=== PATIENT | male | born 1950 | race Caucasian/White ===

== ENCOUNTER 2023-05-11 08:35 | Inpatient (IN) | payer MEDICARE, MEDICAID ==
[~2023-05-11] VITALS: Ht 167.6 cm; Wt 71.4 kg
[~2023-05-11 08:35] MED LIST: CLIN-97 PO; NAPR-56 PO
--- NOTE | 2023-05-11 09:05 | NUR ---
PATIENTS , LOOKING FOR XL WHEELCHAIR, ER REG WAS ABLE TO LOCATE AN LARGER W/C BUT PATIENT AND DECLINED PER "ITS TOO LOW" UNDERSTANDING IN THE SITUATION.
[2023-05-11] MEDS ORDERED: piperacillin/tazo 4.5gm/100ml 100 ML IV SCH (12:00)
[2023-05-11] MEDS ORDERED: ringers solution, lacted 1,000 ML IV ONE (12:05)
[2023-05-11 12:33] LABS: BASOPHILS # (AUTO) 0.1 X10'3 (0-0.2); BASOPHILS % (AUTO) 0.6 % (0-1); EOSINOPHILS % (AUTO) 0.4 % (0-6); HEMATOCRIT 44.4 % (42.0-52.0); LYMPHOCYTES # (AUTO) 0.8 X10'3 (1.1-4.8); LYMPHOCYTES % (AUTO) 8.9 % (21-51); MEAN CORPUSCULAR HEMOGLOBIN 29.8 PG (27.0-31.0); MEAN CORPUSCULAR HGB CONC 33.8 g/dL (33.0-36.5); MEAN CORPUSCULAR VOLUME 88.1 FL (78-98); MEAN PLATELET VOLUME 6.5 FL (7.4-10.4); MONOCYTES # (AUTO) 0.8 X10'3 (0-0.9); MONOCYTES % (AUTO) 7.9 % (2-12); NEUTROPHILS # (AUTO) 7.8 X10'3 (1.8-7.7); NEUTROPHILS % (AUTO) 82.2 % (42-75); PLATELET COUNT 328 X10'3 (140-440); RED BLOOD COUNT 5.04 X10'6 (4.70-6.10); RED CELL DISTRIBUTION WIDTH 13.6 % (11.5-14.5); WHITE BLOOD COUNT 9.5 X10'3 (4.5-11.0)
[2023-05-11] MEDS ORDERED: normal saline 1000ml 1,000 ML IV ONE (12:40)
[2023-05-11 13:00] LABS: ALANINE AMINOTRANSFERASE 22 U/L (12-78); ALBUMIN 4.1 G/DL (3.4-5.0); ALBUMIN/GLOBULIN RATIO 1.1 (1.1-1.5); ALKALINE PHOSPHATASE 124 IU/L (46-116); ANION GAP 11 (8-16); ASPARTATE AMINO TRANSFERASE 23 U/L (10-37); BILIRUBIN,TOTAL 0.6 MG/DL (0.1-1.0); BLOOD UREA NITROGEN 12 MG/DL (7-18); BUN/CREATININE RATIO 16.2 (10.0-20.0); CALCIUM 9.8 MG/DL (8.5-10.1); CHLORIDE 101 MMOL/L (99-107); CREATININE 0.74 MG/DL (0.60-1.10); GLUCOSE 107 MG/DL (70-104); SODIUM 134 MMOL/L (135-145); TOTAL CARBON DIOXIDE 21.7 MMOL/L (24-32); eCRCL 81 ML/MIN; eGFR > 90 ML/MIN
[2023-05-11] MEDS: vancomycin/NS 1 GM ADD-VANTAGE 250 ML IV SCH (14:00)
--- NOTE | 2023-05-11 14:09 | NUR ---
VASC DOWN HERE FOR STUDY, PT IN CT AND STUDY IS ROUTINE, THEY WILL RETURN.
[2023-05-11] MEDS ORDERED: magnesium 4gm in 100ml NS 100 ML IV PRN (14:25)
[2023-05-11] MEDS ORDERED: magnesium 2GM in 50ml NS 50 ML IV PRN (14:25)
[2023-05-11] MEDS ORDERED: acetaminophen 325mg tablet PO PRN (14:25)
[2023-05-11] MEDS ORDERED: mag hydrox/Alum hydrox/simeth 30ml oral suspension PO PRN (14:25)
[2023-05-11] MEDS ORDERED: magnesium hydroxide 30ml (MOM) UD suspension PO PRN (14:25)
[2023-05-11] MEDS ORDERED: ondansetron/PF 4mg/2ml inj IV PRN (14:25)
[2023-05-11] MEDS ORDERED: diphenhydrAMINE 25mg capsule PO PRN (14:25)
[2023-05-11] MEDS ORDERED: potassium Cl 40MEQ/1/2NS 520ml 520 ML IV PRN (14:25)
[2023-05-11] MEDS ORDERED: potassium Cl 20 mEq SR tablet PO PRN ×2 (14:25)
[2023-05-11] MEDS ORDERED: magnesium Cl slow-release 64mg tablet PO PRN (14:25)
[2023-05-11] MEDS ORDERED: CLIN300C71 PO (14:44)
[2023-05-11] MEDS ORDERED: ibuprofen 200mg tablet PO ONE (16:05)
[2023-05-11] MEDS: K and/or MAG REPLACEMENT MC SCH (19:41)
[2023-05-11] MEDS: docusate sod 100mg capsule PO SCH (19:41)
--- NOTE | 2023-05-11 21:30 | NUR ---
REPORT CALLED TO FLOOR RN PT TX TO ROOM 4016 BY TECH
--- NOTE | 2023-05-11 21:35 | NUR ---
Patient in room ORTHO 4010. I have received report from KELSIE Ricci in the ER and had the opportunity to ask questions and assume patient care.
[2023-05-11 22:00] VITALS: BP 151/75; PULSE 72; RESP 16; TEMP 98.1; O2SAT 96
--- NOTE | 2023-05-11 22:00 | NUR ---
Patient arrived from ER in a wheelchair, has limited use of legs and he is a 2person assist into bed.
[2023-05-11 22:30] VITALS: RESP 16; O2SAT 96
[2023-05-11] MEDS: piperacillin/tazo 4.5gm/100ml 100 ML IV SCH (22:53)
[2023-05-11] MEDS: heparin, porcine 5000 units/ml vial SQ SCH (22:56)
[2023-05-12] MEDS: HYDROcodone/acetaminophen 5mg/325mg tablet PO PRN ×3 (02:45→22:06)
[2023-05-12] MEDS: vancomycin/NS 1 GM ADD-VANTAGE 250 ML IV SCH ×2 (03:21→15:01)
[2023-05-12] MEDS: piperacillin/tazo 4.5gm/100ml 100 ML IV SCH ×3 (05:06→22:07)
[2023-05-12 06:00] VITALS: BP 125/76; PULSE 67; RESP 16; TEMP 97.6; O2SAT 94
[2023-05-12 06:28] LABS: BASOPHILS % (AUTO) 0.6 % (0-1); EOSINOPHILS # (AUTO) 0.2 X10'3 (0-0.9); EOSINOPHILS % (AUTO) 3.9 % (0-6); HEMATOCRIT 38.7 % (42.0-52.0); HEMOGLOBIN 13.1 g/dl (14.0-17.9); LYMPHOCYTES % (AUTO) 16.6 % (21-51); MEAN CORPUSCULAR HGB CONC 33.9 g/dL (33.0-36.5); MEAN CORPUSCULAR VOLUME 88.4 FL (78-98); MEAN PLATELET VOLUME 6.4 FL (7.4-10.4); MONOCYTES # (AUTO) 0.7 X10'3 (0-0.9); MONOCYTES % (AUTO) 11.4 % (2-12); NEUTROPHILS # (AUTO) 4.2 X10'3 (1.8-7.7); NEUTROPHILS % (AUTO) 67.5 % (42-75); PLATELET COUNT 264 X10'3 (140-440); RED BLOOD COUNT 4.38 X10'6 (4.70-6.10); RED CELL DISTRIBUTION WIDTH 13.6 % (11.5-14.5); WHITE BLOOD COUNT 6.2 X10'3 (4.5-11.0)
--- NOTE | 2023-05-12 06:43 | NUR ---
Problems reprioritized. Patient report given, questions answered & plan of care reviewed with TARIQ Gibbons.
[2023-05-12 06:53] LABS: ALANINE AMINOTRANSFERASE 19 U/L (12-78); ALBUMIN/GLOBULIN RATIO 0.9 (1.1-1.5); ALKALINE PHOSPHATASE 94 IU/L (46-116); ANION GAP 10 (8-16); ASPARTATE AMINO TRANSFERASE 24 U/L (10-37); BILIRUBIN,TOTAL 0.7 MG/DL (0.1-1.0); BLOOD UREA NITROGEN 11 MG/DL (7-18); BUN/CREATININE RATIO 14.3 (10.0-20.0); CALCIUM 8.6 MG/DL (8.5-10.1); CHLORIDE 104 MMOL/L (99-107); CREATININE 0.77 MG/DL (0.60-1.10); GLUCOSE 87 MG/DL (70-104); MAGNESIUM 1.9 MG/DL (1.5-2.4); PHOSPHORUS 2.8 MG/DL (2.3-4.5); POTASSIUM 3.8 MMOL/L (3.5-5.1); SODIUM 138 MMOL/L (135-145); TOTAL CARBON DIOXIDE 24.2 MMOL/L (24-32); TOTAL PROTEIN 6.3 G/DL (6.4-8.2); eCRCL 78 ML/MIN; eGFR > 90 ML/MIN
[2023-05-12] MEDS: K and/or MAG REPLACEMENT MC SCH ×2 (08:00→20:00)
[2023-05-12] MEDS: docusate sod 100mg capsule PO SCH ×2 (08:00→20:00)
[2023-05-12 08:45] VITALS: RESP 20
[2023-05-12] MEDS: heparin, porcine 5000 units/ml vial SQ SCH ×2 (09:36→20:34)
[2023-05-12 10:00] VITALS: BP 134/84; PULSE 74; RESP 18; TEMP 98.2; O2SAT 96
--- NOTE | 2023-05-12 14:37 | NUR ---
PRESSURE ULCER EDUCATION: DEFINITION: A pressure ulcer is an area of skin that breaks down when you stay in one position too long. The constant pressure against the skin reduces the blood flow to that area and the affected tissue dies. CAUSES: "Being bedridden or in a wheelchair "Fragile skin "Having a chronic condition, such as diabetes or vascular disease "Inability to move certain parts of your body without assistance "Older age "Incontinence of urine or stool SYMPTOMS: "A reddened area that DOES NOT turn white when pressed on - this can be the beginning of a pressure ulcer "A blister, deep sore or a crater - these can be advanced pressure ulcers FIRST AID: "Relieve the pressure on this area "Keep the area clean and dry "Call your primary doctor if you see any of the above symptoms "DO NOT massage the area "DO NOT use a donut shaped or ring shaped pillow- these actually interfere with the blood flow and cause complications PREVENTION: "Check for pressure ulcers everyday "Change position at least every two hours to relieve pressure "Use items that help relieve pressure- pillows, sheepskin, foam padding, and powders. "Keep skin clean and dry "Eat healthy well balanced meals "Exercise daily IF YOU SEE ANY OF THESE SYMPTOMS WHILE IN THE HOSPITAL - TELL YOUR NURSE IMMEDIATELY. IF YOU SEE ANY OF THESE SYMPTOMS WHILE AT HOME OR HAVE ANY QUESTIONS OR CONCERNS ABOUT PRESSURE ULCERS - CALL YOUR PRIMARY DOCTOR IMMEDIATELY. Addendum: 05/12/23 at 1438 by Shilpi Prajapati LVN Amended: Links added.
[2023-05-12 18:00] VITALS: BP 171/96; PULSE 96; RESP 16; TEMP 98.5; O2SAT 96
--- NOTE | 2023-05-12 18:15 | NUR ---
Patient in room ORTHO 4010. I have received report from TARIQ Gibbons and had the opportunity to ask questions and assume patient care. Patient sitting up in bedside chair,family present. No concerns at this time, I will continue to monitor.
[2023-05-12 20:00] VITALS: RESP 16; O2SAT 96
[2023-05-12 22:00] VITALS: BP 143/83; PULSE 75; RESP 16; TEMP 98.1; O2SAT 97
[2023-05-13] MEDS ORDERED: VANCOMYCIN LEVEL IV ONE (01:30)
[2023-05-13 01:34] LABS: BASOPHILS # (AUTO) 0.1 X10'3 (0-0.2); BASOPHILS % (AUTO) 0.9 % (0-1); EOSINOPHILS # (AUTO) 0.3 X10'3 (0-0.9); EOSINOPHILS % (AUTO) 4.2 % (0-6); HEMATOCRIT 37.3 % (42.0-52.0); HEMOGLOBIN 12.8 g/dl (14.0-17.9); LYMPHOCYTES # (AUTO) 1.4 X10'3 (1.1-4.8); LYMPHOCYTES % (AUTO) 21.6 % (21-51); MEAN CORPUSCULAR HGB CONC 34.3 g/dL (33.0-36.5); MEAN CORPUSCULAR VOLUME 87.6 FL (78-98); MEAN PLATELET VOLUME 6.3 FL (7.4-10.4); MONOCYTES # (AUTO) 0.8 X10'3 (0-0.9); MONOCYTES % (AUTO) 12.1 % (2-12); NEUTROPHILS % (AUTO) 61.2 % (42-75); PLATELET COUNT 270 X10'3 (140-440); RED BLOOD COUNT 4.26 X10'6 (4.70-6.10); RED CELL DISTRIBUTION WIDTH 13.8 % (11.5-14.5); WHITE BLOOD COUNT 6.5 X10'3 (4.5-11.0)
[2023-05-13 01:50] LABS: ALANINE AMINOTRANSFERASE 22 U/L (12-78); ALBUMIN 3.1 G/DL (3.4-5.0); ALBUMIN/GLOBULIN RATIO 0.9 (1.1-1.5); ALKALINE PHOSPHATASE 90 IU/L (46-116); ANION GAP 6 (8-16); ASPARTATE AMINO TRANSFERASE 22 U/L (10-37); BILIRUBIN,TOTAL 0.7 MG/DL (0.1-1.0); BLOOD UREA NITROGEN 11 MG/DL (7-18); BUN/CREATININE RATIO 14.1 (10.0-20.0); CALCIUM 8.7 MG/DL (8.5-10.1); CHLORIDE 104 MMOL/L (99-107); CREATININE 0.78 MG/DL (0.60-1.10); GLUCOSE 86 MG/DL (70-104); MAGNESIUM 1.9 MG/DL (1.5-2.4); PHOSPHORUS 2.9 MG/DL (2.3-4.5); POTASSIUM 3.5 MMOL/L (3.5-5.1); SODIUM 136 MMOL/L (135-145); TOTAL CARBON DIOXIDE 26.5 MMOL/L (24-32); TOTAL PROTEIN 6.4 G/DL (6.4-8.2); VANCOMYCIN,TROUGH 15.8 ug/mL (10.0-20.0); eCRCL 77 ML/MIN; eGFR > 90 ML/MIN
[2023-05-13] MEDS: vancomycin/NS 1 GM ADD-VANTAGE 250 ML IV SCH ×2 (02:07→14:00)
[2023-05-13] MEDS: piperacillin/tazo 4.5gm/100ml 100 ML IV SCH ×2 (04:25→12:00)
--- NOTE | 2023-05-13 06:07 | NUR ---
Problems reprioritized. Patient report given, questions answered & plan of care reviewed with TARIQ Paredes.
[2023-05-13 08:00] VITALS: RESP 16; O2SAT 96
[2023-05-13] MEDS: K and/or MAG REPLACEMENT MC SCH (08:00)
[2023-05-13] MEDS: docusate sod 100mg capsule PO SCH (08:00)
[2023-05-13] MEDS: heparin, porcine 5000 units/ml vial SQ SCH (08:15)
[2023-05-13 09:59] VITALS: BP 126/84; PULSE 61; RESP 16; TEMP 97.7; O2SAT 96
[2023-05-13] MEDS ORDERED: ACET-1008 PO (12:34)
[2023-05-13] MEDS ORDERED: LACT1CAP26 PO (12:34)
[2023-05-13] MEDS ORDERED: LINE600T11 CORPAK ×2 (12:34)
[2023-05-13] MEDS ORDERED: LINE600T14 PO (14:17)
[2023-05-13] MEDS ORDERED: HYDR-3965 PO (15:25)
== END 2023-05-13 14:32 | disposition home or self-care (01) | DRG 603 ==
LOC: ER 08:36 → ED HOLD 13:54 → EDBEDREQ 20:35 → ORTHO 4S 21:33
PROVIDERS: ADMIT Family Medicine; ATTEND Family Medicine
PROC: 05HY33Z Insertion of Infusion Device into Upper Vein, Percutaneous Approach (ICD-10-PCS; principal; 2023-05-11)
DX: L03.115 Cellulitis of right lower limb (principal)
CPT/HCPCS: 36415; 73700; 80053; 80202; 83605; 83735; 84100; 84145; 85025; 87040; 87081; 93926; 93971; 97161; 97530; 99285; A6223; A6258; G0378; J1644; J2543; J3370; J7030; J7040